=== PATIENT | female | born 1985 | race Caucasian/White ===

== ENCOUNTER 2017-10-02 17:41 | Emergency (ER) | payer OTHER, BC ==
[~2017-10-02] VITALS: Ht 160 cm; Wt 83.3 kg
[2017-10-02] MEDS ORDERED: MOTRIN800 MG PO (18:45)
[2017-10-02] MEDS ORDERED: FLEXERIL10 MG PO (18:45)
[2017-10-02 19:17] VITALS: BP 139/89
== END 2017-10-02 19:17 | disposition home or self-care (01) ==
LOC: EME 17:41
DX: S43.401A Unspecified sprain of right shoulder joint, initial encounter (principal); S40.011A Contusion of right shoulder, initial encounter; V49.10XA Passenger injured in collision with unspecified motor vehicles in nontraffic accident, initial encounter; Y92.410 Unspecified street and highway as the place of occurrence of the external cause; F32.9 Major depressive disorder, single episode, unspecified; F41.9 Anxiety disorder, unspecified
CPT/HCPCS: 73030; 99281; 99284